=== PATIENT | female | born 1960 | race Two or more races ===

== ENCOUNTER 2018-01-31 17:04 | Emergency (ER) | payer MEDICARE, OTHER ==
[~2018-01-31] VITALS: Ht 162.6 cm; Wt 74.8 kg
[2018-01-31] MEDS ORDERED: SODIUM BICARBONATE 8.4% INJ 50ML SYRINGE IV ONE (17:05)
[2018-01-31] MEDS ORDERED: DEXTROSE (50%) 50ML SYRG IV ONE (17:05)
[2018-01-31] MEDS ORDERED: EPINEPHrine HCL 1 MG/10 ML SYRG IV ONE (17:05)
[2018-01-31] MEDS ORDERED: CALCIUM CHLOR(10%) 100MG/ML 10ML SYRINGE IV ONE ×2 (17:05→17:34)
[2018-01-31] MEDS ORDERED: SODIUM BICARBONATE 8.4% INJ 50ML SYRINGE ONE (17:16)
[2018-01-31] MEDS ORDERED: EPINEPHrine HCL 1 MG/10 ML SYRG ONE ×2 (17:22→17:29)
== END 2018-02-01 00:48 | disposition home or self-care (01) ==
LOC: ER 17:04
DX: I46.9 Cardiac arrest, cause unspecified (principal); I11.0 Hypertensive heart disease with heart failure; I50.9 Heart failure, unspecified; E11.9 Type 2 diabetes mellitus without complications
CPT/HCPCS: 92950; 99285; J0171; J7042